=== PATIENT | female | born 1975 | race Caucasian/White ===

== ENCOUNTER 2024-11-19 15:51 | Outpatient (AMB) | payer OTHER, SELFPAY ==
--- NOTE | 2024-11-19 16:04 | HO.NEPHOV ---
Vital Signs 11/19/24 16:08 Height 5 ft 4 in Weight 240 lb BMI 41.2 BP 140/100 H Blood Pressure Location Lt brachial Position Sitting Pulse 76 Pulse Source Pulse Oximeter Pulse Oximetry (%) 97 Oxygen Delivery Method Room Air Intake Visit Reasons: ENP: HTN Quarter Backer Required: No Accompanied by: Self / Same As Patient Allergies latex Allergy (Verified 11/19/24 16:08) Unknown mold Allergy (Verified 11/19/24 16:08) Unknown Penicillins Allergy (Verified 11/19/24 16:08) Unknown Sulfa (Sulfonamide Antibiotics) Allergy (Verified 11/19/24 16:08) Unknown HPI Comments Details: I had the pleasure of seeing Hiro in consultation for hypertension. She has been having weight gain for the last couple of years. She has gained close to 20 lb in the last year which she attributes to menopause. After she had COVID in 2019, her blood pressure has been fluctuant and has been going up. She developed headaches couple years ago and has seen a neurologist who at that time who started her on propranolol. She is not very active but eats healthy. She does not consume excess sodium in the diet. She has no history of hypokalemia, sleep apnea, hypercalcemia, thyroid dysfunction, coronary artery disease, carotid stenosis, congestive heart failure, CVA, PVD or MAGDIEL. She has a Doppler of her renal artery pending. She has been getting more headaches which is coinciding with her spikes in blood pressure. She was started on OCP by her polymerization oven operator for menopausal symptoms but had come off it after a month due to blood pressure issues. She denies chest pain, shortness of breath, paroxysmal nocturnal dyspnea, orthopnea or urinary symptoms. She has prediabetes. She feels that she has been having mild pedal edema after she was started on amlodipine 2.5 mg recently. She did not have any other systemic complaints at the time this office visit. [facility] Medical History (Updated 11/19/24 @ 16:48 by Mike Mehta MD) Tubular adenoma of colon Obesity Migraine Hypertension Adjustment disorder with anxiety Surgical History (Updated 11/19/24 @ 16:07 by Toma Rose MA) History of appendectomy H/O colonoscopy Family History Father Diabetes Hypertension Bladder cancer Mother Hypertension Paternal Grandfather Diabetes Maternal Grandmother Diabetes Social History (Updated 11/19/24 @ 16:05 by Toma Rose MA) Alcohol intake: current Comment: Rare Patient Tobacco Use Status: Never used Tobacco Review of Systems Const All systems reviewed & are unremarkable except as noted in HPI and below Physical Exam Vital Signs: Last Vital Signs Pulse 76 11/19/24 16:08 BP 140/100 H 11/19/24 16:08 Pulse Ox 97 11/19/24 16:08 Oxygen Delivery Method Room Air 11/19/24 16:08 BMI result Body Mass Index 41.2 Const General: comfortable and no acute distress Orientation/consciousness: patient oriented x3 HEENT Head: Yes normocephalic Mouth: Normal oral and palatal mucosa present Eyes EOM: EOMs intact bilaterally Neck Neck: Yes supple Resp Auscultation: clear to auscultation bilaterally Cardio Jugular venous distension: no JVD Rate: regular rate GI Palpation (GI): Soft to palpation Auscultation: normal bowel sounds General: Yes no CVA tenderness Back/Spine/Pelvis Back: no CVA tenderness Skin General skin exam: no rashes or lesions noted Neuro General: patient oriented x3 and moves all extremities Extrem General: Yes no pedal edema Results Reviewed Nephrology Results: No Data to Display Assessment & Plan Assessment & Plan (1) Hypertension: Code(s): I10 - Essential (primary) hypertension Category: Medical Qualifiers: Hypertension type: unspecified Qualified Code(s): I10 - Essential (primary) hypertension Plan Hiro has hypertension since she had COVID in 2020. She has been taking propranolol for headaches which also has been helping with the blood pressure. Her blood pressures are going up and she was started on oral contraceptives by her polymerization oven operator for menopausal symptoms. Her OCPs have been discontinued. She has gained quite a bit of weight which she needs to lose. She will benefit from GLP 1 agonist given she is prediabetic. She is not known to have any left ventricular hypertrophy, proteinuria, retinopathy, coronary artery disease, CVA or CHF. She has edema from amlodipine. Doppler of her renal arteries are pending. I have ordered a 24 hour ambulatory blood pressure monitor. I discontinued her amlodipine and started her on losartan 25 mg daily. All common side effects of losartan has been explained in detail. Follow-up lab work on losartan has been ordered in a month. Her lipid profile according to her has been acceptable. She needs to maintain low-sodium diet and increase her activity. If her 24 hour ambulatory blood pressure monitor shows high readings at night I will consider doing a sleep study. Answered all questions and follow-up appointment given in 2 weeks Orders: Orders AMB 24 HR B/P Monitor PLACEMENT Today I10 - Essential (primary) hypertension TSH reflex Free T4 1 Month I10 - Essential (primary) hypertension Electrolytes 1 Month I10 - Essential (primary) hypertension Blood Urea Nitrogen 1 Month I10 - Essential (primary) hypertension Creatinine 1 Month I10 - Essential (primary) hypertension Protein Creatinine Ratio, Ur 1 Month I10 - Essential (primary) hypertension Medications: New losartan 25 mg PO DAILY 30 tabs 4RF Coding Level of Care Code Est Pt Level 4 (29184) Diagnoses Hypertension, unspecified type I10 Hypertension type: unspecified
[2024-11-19 16:08] VITALS: BP 140/100; PULSE 76; O2SAT 97; BMI 41.2
== END 2024-11-19 16:57 | disposition home or self-care (01) ==
LOC: HO.HKAS 15:51
PROVIDERS: PCP Family Medicine; Referring Provider Family Medicine; Visit Provider Internal Medicine Nephrology
DX: I10 Essential (primary) hypertension (principal)
CPT/HCPCS: 99214

== ENCOUNTER → 2024-11-19 15:51 | Outpatient (BNVA) | payer OTHER, SELFPAY | PROVIDERS: PCP Family Medicine; Referring Provider Family Medicine; Visit Provider Internal Medicine Nephrology ==

== ENCOUNTER 2024-11-28 12:16 | Outpatient (REF) | payer OTHER, SELFPAY ==
[2024-11-28 18:13] LABS: Anion Gap 9 (12-20); Blood Urea Nitrogen 13 mg/dL (9-16); Carbon Dioxide 27 mmol/L (22-29); Chloride 105 mmol/L (96-108); Estimated Glomerular Filt Rate > 60; Potassium 4.4 mmol/L (3.3-5.1); Sodium 137 mmol/L (135-145)
[2024-11-28 18:30] LABS: TSH reflex Free T4 1.16 uIU/mL (0.32-4.0)
[2024-11-28 18:57] LABS: Creatinine Urine 86.31 mg/dL; Protein/Creatinine Ratio, Ur 0.09 (<0.2); Total Protein Urine Random 8 mg/dL (<12)
== END 2024-11-28 12:17 | disposition home or self-care (01) ==
LOC: HO.HKASLDS 12:16
PROVIDERS: Visit Provider Internal Medicine Nephrology
DX: I10 Essential (primary) hypertension (principal)
CPT/HCPCS: 36415; 80051; 82565; 82570; 84156; 84443; 84520

== ENCOUNTER → 2024-12-02 13:18 | Outpatient (BNVA) | payer OTHER, SELFPAY | PROVIDERS: PCP Family Medicine; Visit Provider Internal Medicine Nephrology ==

== ENCOUNTER 2024-12-03 15:15 | Outpatient (AMB) | payer OTHER, SELFPAY ==
--- NOTE | 2024-12-03 15:20 | HO.NEPHOV ---
Vital Signs 12/03/24 15:21 Height 5 ft 4 in BP 124/90 H Blood Pressure Location Lt brachial Position Sitting Pulse 68 Pulse Source Pulse Oximeter Pulse Oximetry (%) 98 Oxygen Delivery Method Room Air Intake Visit Reasons: 2wk follow-up w/labs-LVM Telesales Consultant Required: No Accompanied by: Self / Same As Patient Allergies latex Allergy (Verified 12/03/24 15:21) Unknown mold Allergy (Verified 12/03/24 15:21) Unknown Penicillins Allergy (Verified 12/03/24 15:21) Unknown Sulfa (Sulfonamide Antibiotics) Allergy (Verified 12/03/24 15:21) Unknown HPI Comments Details: I had the pleasure of seeing Hiro in follow up for hypertension. She has been having weight gain for the last couple of years. She has gained close to 20 lb in the last year which she attributes to menopause. After she had COVID in 2020, her blood pressure has been fluctuant and has been going up. She developed headaches couple years ago and has seen a neurologist who at that time who started her on propranolol. She is not very active but eats healthy. She does not consume excess sodium in the diet. She has no history of hypokalemia, sleep apnea, hypercalcemia, thyroid dysfunction, coronary artery disease, carotid stenosis, congestive heart failure, CVA, PVD or MAGDIEL. Doppler of her renal artery not done yet. She has been getting more headaches which is coinciding with her spikes in blood pressure. She was started on OCP by her acquisitions editor for menopausal symptoms but had come off it after a month due to blood pressure issues. She denies chest pain, shortness of breath, paroxysmal nocturnal dyspnea, orthopnea or urinary symptoms. She has prediabetes. She had a 24 hour BPM which showed 24 hour average of 118/75 mm of Hg with day time average of 120/77 and night time average of 114/70 mm of Hg on losartan 25 mg daily. She did not have any other systemic complaints at the time this office visit. [facility] Medical History (Updated 11/19/24 @ 16:48 by Mike Mehta MD) Tubular adenoma of colon Obesity Migraine Hypertension Adjustment disorder with anxiety Surgical History History of appendectomy H/O colonoscopy Family History Father Diabetes Hypertension Bladder cancer Mother Hypertension Paternal Grandfather Diabetes Maternal Grandmother Diabetes Social History Alcohol intake: current Comment: Rare Patient Tobacco Use Status: Never used Tobacco Review of Systems Const All systems reviewed & are unremarkable except as noted in HPI and below Physical Exam Vital Signs: Last Vital Signs Pulse 68 12/03/24 15:21 BP 124/90 H 12/03/24 15:21 Pulse Ox 98 12/03/24 15:21 Oxygen Delivery Method Room Air 12/03/24 15:21 Const General: comfortable and no acute distress Orientation/consciousness: patient oriented x3 HEENT Head: Yes normocephalic Mouth: Normal oral and palatal mucosa present Eyes EOM: EOMs intact bilaterally Neck Neck: Yes supple Resp Auscultation: clear to auscultation bilaterally Cardio Jugular venous distension: no JVD Rate: regular rate GI Palpation (GI): Soft to palpation Auscultation: normal bowel sounds General: Yes no CVA tenderness Back/Spine/Pelvis Back: no CVA tenderness Skin General skin exam: no rashes or lesions noted Neuro General: patient oriented x3 and moves all extremities Extrem General: Yes no pedal edema Results Reviewed Nephrology Results: Sodium 137 mmol/L (135-145) 11/28/24 Potassium 4.4 mmol/L (3.3-5.1) 11/28/24 Chloride 105 mmol/L (96-108) 11/28/24 Carbon Dioxide 27 mmol/L (22-29) 11/28/24 BUN 13 mg/dL (9-16) 11/28/24 Creatinine 0.69 mg/dL (0.5-1.4) 11/28/24 Urine Creatinine 86.31 mg/dL 11/28/24 Protein/Creatinin Ratio 0.09 (<0.2) 11/28/24 Assessment & Plan Assessment & Plan (1) Hypertension: Code(s): I10 - Essential (primary) hypertension Category: Medical Qualifiers: Hypertension type: unspecified Qualified Code(s): I10 - Essential (primary) hypertension Plan Hiro has hypertension since she had COVID in 2019. She has been taking propranolol for headaches which also has been helping with the blood pressure. Her blood pressures are going up and she was started on oral contraceptives by her acquisitions editor for menopausal symptoms. Her OCPs have been discontinued. She has gained quite a bit of weight which she needs to lose. She will benefit from GLP 1 agonist given she is prediabetic. She is not known to have any left ventricular hypertrophy, proteinuria, retinopathy, coronary artery disease, CVA or CHF. Doppler of her renal arteries are pending. 24 hour BPM which showed 24 hour average of 118/75 mm of Hg with day time average of 120/77 and night time average of 114/70 mm of Hg on losartan 25 mg daily.All common side effects of losartan has been explained in detail. Her lipid profile according to her has been acceptable. She needs to maintain low-sodium diet and increase her activity. Answered all questions and follow-up appointment given Orders: Orders US renal BI 1 Month I10 - Essential (primary) hypertension Creatinine 3 Months I10 - Essential (primary) hypertension Blood Urea Nitrogen 3 Months I10 - Essential (primary) hypertension Electrolytes 3 Months I10 - Essential (primary) hypertension US renal doppler 1 Month I10 - Essential (primary) hypertension Coding Level of Care Code Est Pt Level 4 (07795) Diagnoses Hypertension, unspecified type I10 Hypertension type: unspecified
[2024-12-03 15:21] VITALS: BP 124/90; PULSE 68; O2SAT 98
== END 2024-12-03 15:54 | disposition home or self-care (01) ==
LOC: HO.HKAS 15:15
PROVIDERS: PCP Family Medicine; Visit Provider Internal Medicine Nephrology
DX: I10 Essential (primary) hypertension (principal)
CPT/HCPCS: 99214

== ENCOUNTER → 2024-12-03 15:15 | Outpatient (BNVA) | payer OTHER, SELFPAY | PROVIDERS: PCP Family Medicine; Visit Provider Internal Medicine Nephrology | DX: I10 Essential (primary) hypertension (principal); Z79.899 Other long term (current) drug therapy | CPT/HCPCS: 93786; 93788 ==

== ENCOUNTER 2025-01-17 09:09 | Outpatient (REF) | payer OTHER, SELFPAY ==
--- NOTE | ~2025-01-17 | US_ITS ---
EXAMINATION: Ultrasound renal bilaterally. Ultrasound renal arteries color Doppler. CLINICAL INFORMATION: Hypertension. COMPARISON: No priors. TECHNIQUE: Real-time ultrasound of the kidneys using grayscale and color Doppler technique. Color Doppler spectral analysis and the main renal arteries and the mid abdominal aorta. FINDINGS: Right kidney: 11 x 5 x 5 cm. Normal echotexture. Normal renal cortical thickness. No hydronephrosis. No solid or cystic lesion. Left kidney: 10 x 5 x 5 cm. Normal echotexture. Normal renal cortical thickness. No hydronephrosis. No solid or cystic lesion. Spectral Doppler analysis: Right Kidney: -Peak systolic velocity in the proximal right renal artery = 169 cm/s. Normal waveforms. -Peak systolic velocity in the mid right renal artery = 89 cm/s. Normal waveforms. -Peak systolic velocity in the distal right renal artery = 112 cm/s. Normal waveforms. -Patent right renal vein. -Upper pole interlobar artery resistive index of 0.7. -Midpole interlobar artery resistive index of 0.6. -Lower pole interlobar artery resistive index of 0.65. RAR right = 0.5 Left Kidney: -Peak systolic velocity in the proximal left renal artery = 152 cm/s. Normal waveforms. -Peak systolic velocity in the mid left renal artery = 119 cm/s. Normal waveforms. -Peak systolic velocity in the distal left renal artery = 117 cm/s. Normal waveforms. -Patent left renal vein. -Upper pole interlobar artery resistive index of 0.6. -Mid pole interlobar artery resistive index of 0.6. -lower pole interlobar artery resistive index of 0.6. RAR left = 0.5 Aorta: -Peak systolic velocity = 82 cm/s. US/US renal BI IMPRESSION: Normal renal ultrasound. No hemodynamically high degree stenosis by ultrasound criteria. Electronically signed by: Will Chavira MD 01/17/2025 09:55 AM EDT
--- NOTE | ~2025-01-17 | US_ITS ---
EXAMINATION: Ultrasound renal bilaterally. Ultrasound renal arteries color Doppler. CLINICAL INFORMATION: Hypertension. COMPARISON: No priors. TECHNIQUE: Real-time ultrasound of the kidneys using grayscale and color Doppler technique. Color Doppler spectral analysis and the main renal arteries and the mid abdominal aorta. FINDINGS: Right kidney: 11 x 5 x 5 cm. Normal echotexture. Normal renal cortical thickness. No hydronephrosis. No solid or cystic lesion. Left kidney: 10 x 5 x 5 cm. Normal echotexture. Normal renal cortical thickness. No hydronephrosis. No solid or cystic lesion. Spectral Doppler analysis: Right Kidney: -Peak systolic velocity in the proximal right renal artery = 169 cm/s. Normal waveforms. -Peak systolic velocity in the mid right renal artery = 89 cm/s. Normal waveforms. -Peak systolic velocity in the distal right renal artery = 112 cm/s. Normal waveforms. -Patent right renal vein. -Upper pole interlobar artery resistive index of 0.7. -Midpole interlobar artery resistive index of 0.6. -Lower pole interlobar artery resistive index of 0.65. RAR right = 0.5 Left Kidney: -Peak systolic velocity in the proximal left renal artery = 152 cm/s. Normal waveforms. -Peak systolic velocity in the mid left renal artery = 119 cm/s. Normal waveforms. -Peak systolic velocity in the distal left renal artery = 117 cm/s. Normal waveforms. -Patent left renal vein. -Upper pole interlobar artery resistive index of 0.6. -Mid pole interlobar artery resistive index of 0.6. -lower pole interlobar artery resistive index of 0.6. RAR left = 0.5 Aorta: -Peak systolic velocity = 82 cm/s. US/US renal doppler IMPRESSION: Normal renal ultrasound. No hemodynamically high degree stenosis by ultrasound criteria. Electronically signed by: Will Chavira MD 01/17/2025 09:55 AM EDT
== END 2025-01-17 09:10 | disposition home or self-care (01) ==
LOC: HO.US 09:09
PROVIDERS: PCP Family Medicine; Visit Provider Internal Medicine Nephrology
DX: I10 Essential (primary) hypertension (principal)
CPT/HCPCS: 76775; 93975

== ENCOUNTER → 2025-01-17 09:11 | Outpatient (BNV) | payer OTHER, SELFPAY | PROVIDERS: PCP Family Medicine; Visit Provider Radiology Diagnostic Radiology | DX: I10 Essential (primary) hypertension (principal) | CPT/HCPCS: 76775; 93975 ==

== ENCOUNTER 2025-02-27 11:34 | Outpatient (REF) | payer OTHER, SELFPAY ==
[2025-02-27 17:51] LABS: Anion Gap 10 (12-20); Blood Urea Nitrogen 11 mg/dL (9-16); Carbon Dioxide 27 mmol/L (22-29); Chloride 104 mmol/L (96-108); Estimated Glomerular Filt Rate > 60; Potassium 4.4 mmol/L (3.3-5.1); Sodium 137 mmol/L (135-145)
== END 2025-02-27 11:35 | disposition home or self-care (01) ==
LOC: HO.HKASLDS 11:34
PROVIDERS: Visit Provider Internal Medicine Nephrology
DX: I10 Essential (primary) hypertension (principal)
CPT/HCPCS: 36415; 80051; 82565; 84520

== ENCOUNTER 2025-03-04 09:40 | Outpatient (AMB) | payer OTHER, SELFPAY ==
--- NOTE | 2025-03-04 09:53 | HO.NEPHOV_ITS ---
Vital Signs 03/04/25 09:54 Height 5 ft 4 in Weight 243 lb 8 oz BMI 41.8 BP 134/88 Blood Pressure Location Lt brachial Position Sitting Pulse 64 Pulse Source Pulse Oximeter Pulse Oximetry (%) 97 Oxygen Delivery Method Room Air Intake Visit Reasons: 3mon follow-up w/labs-Conf Merchandise Adjustment Clerk Required: No Accompanied by: Self / Same As Patient Allergies latex Allergy (Verified 03/04/25 09:54) Unknown mold Allergy (Verified 03/04/25 09:54) Unknown Penicillins Allergy (Verified 03/04/25 09:54) Unknown Sulfa (Sulfonamide Antibiotics) Allergy (Verified 03/04/25 09:54) Unknown HPI Comments Details: I had the pleasure of seeing Hiro in follow up for hypertension. She has been having weight gain for the last couple of years. She has gained close to 20 lb in the last year which she attributes to menopause. After she had COVID in 2020, her blood pressure has been fluctuant and has been going up. She developed headaches couple years ago and has seen a neurologist who at that time who started her on propranolol. She is not very active but eats healthy. She does not consume excess sodium in the diet. She has no history of hypokalemia, sleep apnea, hypercalcemia, thyroid dysfunction, coronary artery disease, carotid stenosis, congestive heart failure, CVA, PVD or MAGDIEL. Doppler of her renal artery not done yet. She has been getting more headaches which is coinciding with her spikes in blood pressure. She was started on OCP by her demolition expert for menopausal symptoms but had come off it after a month due to blood pressure issues. She denies chest pain, shortness of breath, paroxysmal nocturnal dyspnea, orthopnea or urinary symptoms. She has prediabetes. She had a 24 hour BPM which showed 24 hour average of 118/75 mm of Hg with day time average of 120/77 and night time average of 114/70 mm of Hg on losartan 25 mg daily. She did not have any other systemic complaints at the time this office visit. She is trying to lose weight with mediocre success [facility] Medical History (Updated 03/04/25 @ 10:31 by Miek Mehta MD) Tubular adenoma of colon Obesity Migraine Hypertension Adjustment disorder with anxiety Surgical History History of appendectomy H/O colonoscopy Family History Father Diabetes Hypertension Bladder cancer Mother Hypertension Paternal Grandfather Diabetes Maternal Grandmother Diabetes Social History Alcohol intake: current Comment: Rare Patient Tobacco Use Status: Never used Tobacco Review of Systems Const All systems reviewed & are unremarkable except as noted in HPI and below Physical Exam Vital Signs: Last Vital Signs Pulse 64 03/04/25 09:54 BP 134/88 03/04/25 09:54 Pulse Ox 97 03/04/25 09:54 Oxygen Delivery Method Room Air 03/04/25 09:54 BMI result Body Mass Index 41.8 Const General: comfortable and no acute distress Orientation/consciousness: patient oriented x3 HEENT Head: Yes normocephalic Mouth: Normal oral and palatal mucosa present Eyes EOM: EOMs intact bilaterally Neck Neck: Yes supple Resp Auscultation: clear to auscultation bilaterally Cardio Jugular venous distension: no JVD Rate: regular rate Heart sounds: Murmur heart sound present GI Palpation (GI): Soft to palpation Auscultation: normal bowel sounds General: Yes no CVA tenderness Back/Spine/Pelvis Back: no CVA tenderness Skin General skin exam: no rashes or lesions noted Neuro General: patient oriented x3 and moves all extremities Extrem General: Yes no pedal edema Results Reviewed Nephrology Results: Sodium, (135-145) 137 mmol/L 02/27/25 Potassium, (3.3-5.1) 4.4 mmol/L 02/27/25 Chloride, (96-108) 104 mmol/L 02/27/25 Carbon Dioxide, (22-29) 27 mmol/L 02/27/25 BUN, (9-16) 11 mg/dL 02/27/25 Creatinine, (0.5-1.4) 0.70 mg/dL 02/27/25 Urine Creatinine 86.31 mg/dL 11/28/24 Protein/Creatinin Ratio, (<0.2) 0.09 11/28/24 Renal US 01/17/25 Assessment & Plan Assessment & Plan (1) Hypertension: Code(s): I10 - Essential (primary) hypertension Category: Medical Qualifiers: Hypertension type: unspecified Qualified Code(s): I10 - Essential (primary) hypertension (2) Dyspnea: Code(s): R06.00 - Dyspnea, unspecified Category: Medical Qualifiers: Dyspnea type: dyspnea on exertion Qualified Code(s): R06.09 - Other forms of dyspnea Plan Hiro has hypertension since she had COVID in 2020. She has been taking propranolol for headaches which also has been helping with the blood pressure. Her blood pressures are going up and she was started on oral contraceptives by her demolition expert for menopausal symptoms. Her OCPs have been discontinued. She has gained quite a bit of weight which she needs to lose. She will benefit from GLP 1 agonist given she is prediabetic. She is not known to have any left ventricular hypertrophy, proteinuria, retinopathy, coronary artery disease, CVA or CHF. Doppler of her renal arteries did not show any MAGDIEL. 24 hour BPM which showed 24 hour average of 118/75 mm of Hg with day time average of 120/77 and night time average of 114/70 mm of Hg on losartan 25 mg daily.All common side effects of losartan has been explained in detail again. Her lipid profile according to her has been acceptable. She needs to maintain low-sodium diet and increase her activity. She will need an ECHO and stress test( ordered). Answered all questions and follow-up appointment given Medications: Refilled losartan 25 mg PO DAILY 90 tabs 4RF Coding Level of Care Code Est Pt Level 4 (49228) Diagnoses Hypertension, unspecified type I10 Hypertension type: unspecified Dyspnea on exertion R06.09 Dyspnea type: dyspnea on exertion
[2025-03-04 09:54] VITALS: BP 134/88; PULSE 64; O2SAT 97; BMI 41.8
== END 2025-03-04 10:38 | disposition home or self-care (01) ==
LOC: HO.HKAS 09:40
PROVIDERS: PCP Family Medicine; Visit Provider Internal Medicine Nephrology
DX: I10 Essential (primary) hypertension (principal); R06.09 Other forms of dyspnea
CPT/HCPCS: 99214

== ENCOUNTER → 2025-03-10 08:00 | Outpatient (REF) | payer OTHER, SELFPAY ==
--- NOTE | 2025-03-10 08:04 | CA_ITS ---
Acquisition Time: 2025-03-10 08:11:06 Total Exercise Time: 00:05:30 Test Indications: Dyspnea Medications: PROPRANOLOL HYDROXYZINE LOSARTAN Protocol: ZARA Max HR: 153 BPM 89% of Pred: 171 BPM Max BP: 190/90 mmHG Max Work Load: 7.0 METS Exercise stress test with exercise 5 mins 30 secs of Zara Protocol, achieving 89% MPHR, with reports of SOB, no chest pain, without any arrythmias, with normotensive response to exercise. Without any EKG changes meeting criteria for ischemia. In recovery, pt's breathing improved to baseline. Test reviewed with Dr. Israel. Referred By: Mike Mehta Electronically Signed By: Riccardo Stack
--- NOTE | 2025-03-10 08:04 | CA_ITS ---
Transthoracic Echocardiogram Patient (Last, First, Middle): Binh Schwartz, Gender: Female Date of : 1975 Age: 49 Procedure Date: 03/10/2025 Procedure Type: Transthoracic Echocardiogram Location: OP Height: 162.56 cm Weight: 108.86 kg BSA: 2.11 m2 Heart Rate: bpm BP: 150 / 95 mmHg Microbiology Professor: LEANN Referring MD: Mike Mehta MD Symptoms: R06.09 - Other forms of dyspnea Study Quality: Fair ECG Rhythm: Sinus Conclusions: - The left ventricular systolic function is normal. The calculated ejection fraction is 59% by biplane method. - No obvious valvular pathology seen on this study. Findings Left Ventricle Normal left ventricular cavity size. There is normal left ventricular wall thickness. The left ventricular systolic function is normal. The calculated ejection fraction is 59% by biplane method. There is no evidence of regional wall motion abnormalities. Diastolic function is normal for age. Right Ventricle Normal right ventricular cavity size and systolic function. Atria Both atria are normal in size. Aortic Valve There is a normal trileaflet aortic valve. There is no aortic valve stenosis. There is no aortic valve regurgitation. Mitral Valve The mitral valve appears normal. There is no mitral valve regurgitation. There is no mitral valve stenosis. Pulmonic Valve The pulmonic valve is likely normal. Tricuspid Valve Normal tricuspid valve structure. There is trace tricuspid valve regurgitation. There is no evidence of pulmonary hypertension. Great Vessels The asc aorta is normal in size. Venous The inferior vena cava is normal in size and collapses less than 50% with inspiration. Pericardium/Pleural There is no evidence of pericardial effusion. Prior Study Comparison No prior study available for comparison. Recommendations, Care & Conclusions No obvious valvular pathology seen on this study. Measurements 2D Linear Measurements IVSd: 0.96 0.6-0.9/0.6-1.0 cm LVIDd: 4.33 3.9-5.3/4.2-5.9 cm LVIDd Index: 2.05 2.4-3.2/2.2-3.1 cm/m2 LVIDs: 2.88 2.0-3.6 cm LVPWd: 0.90 0.7-1.1 cm LA Diam: 3.20 2.7-3.8/3.0-4.0 cm LAIDs Index: 1.52 1.5-2.3 cm/m2 LV Mass: 162.71 67-162/88-224 g LV Mass Index: 77.11 43-95/49-115 g/m2 LVOT Diam: 1.90 3.0+(-)1.3 cm 2D Systolic Function EF 4C: 59.50 >55% EF 2C: 58.30 >55% EF BiP: 58.80 >55% Mitral Valve MV Pk E: 0.94 MV PK A: 0.78 MV Decel Time: 189.00 E/A: 1.20 E'Lateral: 10.40 E'Medial: 7.62 E/E' Med: 12.30 E/E' Lat: 9.00 PHT: 55.00 MVA PHT: 4.00 Decel [place]: 4.97 Aortic Valve AoV Pk Aamir: 1.52 AoV Mn Aamir: 1.05 AoV VTI: 0.32 AoV Pk Grad: 9.00 Aov Mn Grad: 5.00 JOHN Cont.VTI: 2.37 LVOT LVOT Pk Aamir: 1.26 LVOT Mn Aamir: 0.91 LVOT VTI: 0.27 LVOT Pk Grad: 6.00 LVOT Mn Grad: 4.00 LVOT Diam: 1.90 LVOT Area: 2.84 Diastolic Function MV Pk E: 0.94 MV Pk A: 0.78 E/A: 1.20 E'Medial: 7.62 E/E' Med: 12.30 E' Laterial: 10.40 E/E' Lat: 9.00 Right Ventricle TAPSE (mm): 25.40 TVS' Aamir: 10.20 Tricuspid Valve TR Pk Aamir: 1.40 TR Pk Grad: 8.00 RA Press: 8.00 RVSP: 16.00 Great Vessels Aorta Sinus of Valsalva: 3.00 2.0-3.5 cm Ao Asc: 3.20 2.1-3.4 cm Ao Arch: 2.60 Pulmonary Valve PV Pk Aamir: 1.08 Peak PV Grad: 5.00 Updated in Other Vendor System with Status of Final Marvin Israel MD electronically signed on 03/10/2025 11:47:26 AM with status of Final
== END ==
LOC: HO.CARD 08:00
PROVIDERS: PCP Family Medicine; Visit Provider Internal Medicine Nephrology
DX: R06.09 Other forms of dyspnea (principal)
CPT/HCPCS: 93017; 93306

== ENCOUNTER → 2025-03-10 08:04 | Outpatient (BNV) | payer OTHER, SELFPAY | PROVIDERS: PCP Family Medicine; Visit Provider Internal Medicine | DX: R06.09 Other forms of dyspnea (principal); R06.02 Shortness of breath | CPT/HCPCS: 93016; 93018; 93325; 93350 ==

== ENCOUNTER 2025-04-28 08:29 | Outpatient (AMB) | payer OTHER, SELFPAY ==
--- NOTE | 2025-04-28 08:37 | A.OFFVIS_ITS ---
Intake Visit Reasons: 6 Months Allergies latex Allergy (Verified 03/04/25 09:54) Unknown mold Allergy (Verified 03/04/25 09:54) Unknown Penicillins Allergy (Verified 03/04/25 09:54) Unknown Sulfa (Sulfonamide Antibiotics) Allergy (Verified 03/04/25 09:54) Unknown Medication List - Last Reconciled 04/28/25 by Aleisha Coronado MD hydroxyzine HCl 25 mg PO BID PRN losartan 25 mg PO DAILY propranolol ER 60 mg PO DAILY HPI Comments Details: 49 years old woman with hypertension, migraine without aura and also tendency for orgasmic headaches. She is managed with propranolol and generally has avoided taking abortive medicines. Usually she would take [id number] medicine for breakthrough headaches. She was having 2-3 headaches in a month each 1 lasting for few hours. Recently her blood pressure medicines were adjusted. [facility], [facility] Medical History (Updated 04/28/25 @ 08:44 by Aleisha Coronado MD) Tubular adenoma of colon Obesity Migraine Hypertension Adjustment disorder with anxiety Surgical History History of appendectomy H/O colonoscopy Family History Father Diabetes Hypertension Bladder cancer Mother Hypertension Paternal Grandfather Diabetes Maternal Grandmother Diabetes Social History Alcohol intake: current Comment: Rare Patient Tobacco Use Status: Never used Tobacco Review of Systems Const Details: 2-3 headaches a month Physical Exam Neuro Other: Mental Status: Alert and oriented to person, place, and time. Normal attention. Normal spontaneous speech, fluency, and comprehension. No obvious issues with mood and memory. Affect is appropriate. Cranial Nerves: CN II: Visual akins full to confrontation, visual acuity intact. CN III, IV, : Pupils equal, round, reactive to light and accommodation. Extraocular movements are normal. CN V: Facial sensation is normal. CN VII: Facial movements symmetrical. CN VIII: Hearing intact to bedside conversation is normal. CN IX, X: Palate elevates symmetrically. CN XI: Shoulder shrug and head turn symmetrical. CN XII: Tongue midline without atrophy or fasciculations. Extrapyramidal: Full facial expressions and blinking. No rigidity. Movements are appropriate with no tremor or abnormality. Speech: Normal; no dysarthria or tremor. Assessment & Plan Assessment & Plan (1) Migraine: Code(s): G43.909 - Migraine, unspecified, not intractable, without status migrainosus Category: Medical Qualifiers: Migraine type: migraine (< 15 days per month) without aura Status migrainosus presence: without status migrainosus Intractability: not intractable Qualified Code(s): G43.009 - Migraine without aura, not intractable, without status migrainosus Plan Impression: 49 years old woman with migraine without aura and with tendency for orgasmic headaches. She had a CTA of brain done at [facility] in 2020 that according to report revealed moderate P2 stenosis. Recommendations: Propranolol extended-release 60 mg daily, which has been working reasonably well. Vasospastic medicines like Triptan are best avoided in this type of patient. Nonsteroidal anti-inflammatory agents or CGRP inhibitors could be use. Medications: New propranolol ER 60 mg PO DAILY 90 caps 1RF Coding Level of Care Code Est Pt Level 4 (45647) Diagnoses Migraine without aura and without status migrainosus, not intractable G43.009 Migraine type: migraine (< 15 days per month) without aura Status migrainosus presence: without status migrainosus Intractability: not intractable
== END 2025-04-28 08:43 | disposition home or self-care (01) ==
LOC: HO.HSM 08:29
PROVIDERS: PCP Family Medicine; Referring Provider Family Medicine; Visit Provider Psychiatry & Neurology Neurology
DX: G43.009 Migraine without aura, not intractable, without status migrainosus (principal)
CPT/HCPCS: 99214